=== PATIENT | female | born 1990 | race Caucasian/White ===

== ENCOUNTER → 2018-07-24 | Emergency (ER) | payer OTHER ==
[~2018-07-24] VITALS: Ht 162.6 cm; Wt 49.0 kg
[~2018-07-24] MED LIST: DULERA 100 MCG/13 GM IH; DULERA 200 MCG/13 GM IH; MOTRIN800 MG PO; ORPH100T PO; PROAIR HFA8.5 GM IH; PROVENTIL HFA6.7 GM IH; VENTOLIN HFA18 GM
== END | disposition left against medical advice (07) ==
LOC: ER 19:50
DX: Z53.20 Procedure and treatment not carried out because of patient's decision for unspecified reasons (principal)